=== PATIENT | male | born 1950 | race Two or more races ===

== ENCOUNTER 2018-06-25 05:33 | Day surgery (SDC) | payer OTHER | END 2018-06-25 10:30 | disposition home or self-care (01) | LOC: CIR.AMB 05:33 | DX: C67.2 Malignant neoplasm of lateral wall of bladder (principal) ==

== ENCOUNTER 2018-07-05 16:10 | Emergency (ER) | payer OTHER ==
[~2018-07-05] VITALS: Ht 172.7 cm; Wt 79.4 kg
[~2018-07-05 16:10] MED LIST: PROSCAR5 MG PO; TAMS0.4C PO
[2018-07-06] MEDS ORDERED: AMICAR500 MG PO (06:42)
== END 2018-07-06 08:21 | disposition home or self-care (01) ==
LOC: ER 16:10
DX: R31.0 Gross hematuria (principal)

== ENCOUNTER 2019-02-19 09:21 | Day surgery (SDC) | payer OTHER ==
[~2019-02-19 09:21] MED LIST changes: +AMICAR500 MG PO; +ASTRAGALUS PO; +OCUVITE EYE HE1 EACH PO; +VIT D PO
== END 2019-02-19 18:45 | disposition home or self-care (01) ==
LOC: CIR.AMB 09:21
DX: D12.8 Benign neoplasm of rectum (principal); K64.8 Other hemorrhoids; K64.4 Residual hemorrhoidal skin tags; R31.0 Gross hematuria; D49.4 Neoplasm of unspecified behavior of bladder

== ENCOUNTER → 2019-08-14 | Day surgery (SDC) | payer OTHER | END | disposition home or self-care (01) | LOC: ADM 08-08 08:00 → CIR.AMB 07:00 | DX: M75.121 Complete rotator cuff tear or rupture of right shoulder, not specified as traumatic (principal); M75.21 Bicipital tendinitis, right shoulder ==

== ENCOUNTER 2021-04-19 06:05 | Day surgery (SDC) | payer OTHER | END 2021-04-20 07:45 | disposition home or self-care (01) | LOC: CIR.AMB 06:05 | PROVIDERS: ATTEND Urology | DX: C67.1 Malignant neoplasm of dome of bladder (principal); C67.3 Malignant neoplasm of anterior wall of bladder; Z20.822 Contact with and (suspected) exposure to COVID-19; R31.29 Other microscopic hematuria; R33.8 Other retention of urine ==

== ENCOUNTER 2024-08-16 18:29 | Emergency (ER) | payer OTHER ==
[~2024-08-16] VITALS: Ht 172.7 cm; Wt 70.3 kg
[2024-08-16] MEDS ORDERED: ARICEPT5 MG PO (18:40)
[2024-08-16] MEDS ORDERED: WELLBUTRIN SR100 MG PO (18:40)
[2024-08-16] MEDS ORDERED: TOPAMAX15 MG PO (18:40)
[2024-08-16] MEDS ORDERED: PROPANOLOL (18:43)
[2024-08-16] MEDS ORDERED: 0.9 % SODIUM CHLORIDE 1,000 ML IV STA (20:49)
[2024-08-16 21:29] LABS: URINE APPEARANCE Clear; URINE BILIRRUBIN Negative (NEGATIVE); URINE COLOR Dark Yellow; URINE GLUCOSE Negative (NEGATIVE); URINE KETONE Trace (NEGATIVE); URINE LEUKOCYTE Trace; URINE NITRATE Negative; URINE PROTEIN Trace (NEGATIVE)
[2024-08-16 21:33] LABS: URINE BACTERIA 137.2 uL (0.0-1933); URINE EPITHELIAL CELLS 2.3 uL (0.0-38.8); URINE RBC 53.1 uL (0.0-20.8); URINE WBC 15.7 uL (0.0-23.2)
[2024-08-16 21:37] LABS: HEMATOCRIT 31.3 % (39.0-48.0); HEMOGLOBIN 10.6 g/dL (13-16.00); MEAN CELL VOLUME 78.6 fL (80.0-100.00); MEAN CORPUSCULAR HEMOGLOBIN 26.7 pg (27.00-32.0); PLATELET COUNT 157 K/uL (150-450); RED BLOOD COUNT 3.99 M/uL (4.00-6.00); RED CELL DISTRIBUTION WIDTH 16.8 % (11.5-14.5)
[2024-08-16 21:42] LABS: URINE BLOOD TRACE; URINE CAST 0.15 uL (0.0-1.40)
[2024-08-16 22:44] LABS: INR 1.14; PARTIAL THROMBOPLASTIN TIME 41.7 SECONDS (22.0-34.0); PROTHROMBIN TIME 12.3 SECONDS (9.0-11.5)
[2024-08-16 22:48] LABS: ALBUMIN 3.3 gm/dL (3.4-5.0); BILIRUBIN TOTAL 0.67 mg/dL (0.3-1.2); CALCIUM 8.5 mg/dL (8.5-10.1); CREATININE SERUM 0.97 mg/dL (0.70-1.30); GFR 76.08; GLOBULINA 5.1 G/DL (2.4-3.5); POTASSIUM 3.74 mEq/L (3.5-5.1); TOTAL PROTEIN 8.4 gm/dL (6.4-8.2); TSH 2.24 uIU/mL (0.358-3.74)
[2024-08-16] MEDS ORDERED: HYDROCODONE/CHLORPHEN P-STIREX 5 ML ML PO STA (23:22)
[2024-08-17] MEDS ORDERED: TUSNEL LIQUID178 ML PO (02:14)
[2024-08-17] MEDS ORDERED: ZITHROMAX500 MG PO (02:14)
== END 2024-08-17 02:17 | disposition home or self-care (01) ==
LOC: ER 18:30
DX: R63.4 Abnormal weight loss (principal); Z68.45 Body mass index [BMI] 70 or greater, adult; R53.81 Other malaise; Z88.0 Allergy status to penicillin; I10 Essential (primary) hypertension; Z85.89 Personal history of malignant neoplasm of other organs and systems; F32.89 Other specified depressive episodes; Z20.822 Contact with and (suspected) exposure to COVID-19; R16.2 Hepatomegaly with splenomegaly, not elsewhere classified
CPT/HCPCS: 36415; 72040; 74177; 96365; 96366; 99284; J7030; Q9965

== ENCOUNTER → 2025-08-21 | Outpatient (CLI) | payer OTHER ==
[~2025-08-21] MED LIST changes: +ARICEPT5 MG PO; +PROPANOLOL; +TOPAMAX15 MG PO; +TUSNEL LIQUID178 ML PO; +WELLBUTRIN SR100 MG PO; +ZITHROMAX500 MG PO
== END | disposition home or self-care (01) ==
LOC: SONOGRAMA 10:35
PROVIDERS: ATTEND Physical Medicine & Rehabilitation
DX: M75.102 Unspecified rotator cuff tear or rupture of left shoulder, not specified as traumatic (principal)